=== PATIENT | male | born 1945 | race Caucasian/White ===

== ENCOUNTER 2019-02-25 07:10 | Day surgery (SDC) | payer MEDICARE, OTHER ==
[~2019-02-25] VITALS: Ht 185.4 cm; Wt 96.6 kg
[~2019-02-25 07:10] MED LIST: 24 HOUR ALLERG9.9 ML; EPIN0.3P; LOVASTATIN40 MG PO; NEOMYCIN-POLY-7.5 ML; TRAZODONE HCL50 MG PO
--- NOTE | 2019-02-25 09:41 | NUR ---
02/25/19 0941 Yanelis Grossman 0906 PT ARRIVED IN PACU SLEEPY WITH NO C/O'S. ABD SOFT AND PASSING FLATUS. 914 SITTING UP IN BED TALKING TO STAFF. 929 SITTING AT SIDE OF BED GETTING DRESSED WITH AT BEDSIDE. 937 DC INSTRUCTIONS GIVEN. ALL QUESTIONS ANSWERED. LEFT VIA W/C WITH VOLUNTEER.
--- NOTE | 2019-02-26 13:17 | OR ---
[facility] [address] [place], [place] [address] Signed DATE OF OPERATION: 02/25/2019 SURGEON: Ni Gandara MD PREOPERATIVE DIAGNOSIS: Family history of colon cancer (sister) and history of polyps. POSTOPERATIVE DIAGNOSIS: Polyps x2. PROCEDURE: Total colonoscopy to cecum with cold snare polypectomy x1 and hot snare polypectomy x1. ANESTHESIA: Intravenous sedation, fentanyl 150 mcg, and Versed 8 mg. 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 He is a patient of Dr. Black. He last underwent colonoscopy in 2012. He has family history of colon cancer in a sister as well as personal history of polyps. He is admitted at this time to undergo colonoscopy. He understands the risks of bleeding, infection, and perforation. FINDINGS: The prep was excellent. Complete colonoscopy was taken to the cecum without question. He had 2 small polyps, both less than a cm, but both such that snare polypectomy was appropriate. One was in the mid left colon at about 50 cm other than the sigmoid about 30 cm. Both were excised with snare polypectomy technique, one with cold technique, the other with hot snare technique. There were no other findings of concern. DESCRIPTION OF PROCEDURE: The patient was brought to the endoscopy suite and placed in lateral decubitus position, and given intravenous sedation to the point of slurred speech and nystagmus. Digital rectal examination was normal. Full cardiopulmonary monitoring was maintained. An Olympus video colonoscope was passed in the rectum and manipulated throughout the colon ultimately intubating the cecum itself. The ileocecal valve and appendiceal orifice were normal. The scope was withdrawn and examination showed no sign of abnormality until approximately 50 to 60 cm from the anal verge. This was small, but sessile and a cold snare polypectomy approach was used to excise it completely. The specimen was passed for Pathology. Scope was further withdrawn and the sigmoid at about 30 cm was Electronically Signed By: NI GANDARA MD 02/26/19 1317 PATIENT NAME: DENISE MEREDITH OPERATIVE REPORT DATE OF : 41 REPORT #: [id number] PHYSICIAN: NI GANDARA MD PCP: AJITH BLACK MD REPORT IS CONFIDENTIAL AND NOT TO BE RELEASED WITHOUT AUTHORIZATION [facility] [address] [place] [id number] Signed somewhat larger, but still less than a cm polyp. This was excised with hot snare polypectomy technique without problem. Further withdrawal showed no other abnormality including retroflexed view of the rectum. The scope was removed and the patient was taken to recovery room in good condition. CONCLUDING DIAGNOSIS: Polyps x2. PLAN: Recommend repeat colonoscopy in 3 years given family history and so forth. He will return to the ongoing care of Dr. Black otherwise. MD TEMO Junior/VENECIA /[id number] cc: Ajith Black MD Copies: AJITH BLACK MD ~ Electronically Signed By: NI GANDARA MD 02/26/19 1317 PATIENT NAME: DENISE MEREDITH OPERATIVE REPORT DATE OF : 41 REPORT #: [id number] PHYSICIAN: NI GANDARA MD PCP: AJITH BLACK MD REPORT IS CONFIDENTIAL AND NOT TO BE RELEASED WITHOUT AUTHORIZATION
--- NOTE | 2019-02-26 17:22 | PATH ---
[facility] [address] [place], [place] [address] Signed SPECIMEN(S): A COLON POLYP AT 50 CM SPECIMEN(S): B SIGMOID POLYP SPECIMEN SOURCE: A. COLON POLYP AT 50 CM B. SIGMOID POLYP CLINICAL HISTORY: Preop DX: Screening; family history colon CA; patient history of polyps. Postop DX: Polyps x 2 (1 with snare). MICROSCOPIC DESCRIPTION: Histologic sections of all submitted blocks are examined by light microscopy. These findings, together with the gross examination, support the pathologic diagnosis. FINAL PATHOLOGIC DIAGNOSIS: A. Colon, polyp at 50 cm, polypectomy: - Tubular adenoma. - Negative for high-grade dysplasia or malignancy. B. Colon, sigmoid, polyp, polypectomy: - Hyperplastic polyp. - Negative for dysplasia or malignancy. NAL: :cml:C2NR GROSS DESCRIPTION: Two specimens are received in two containers, labeled "WW." A. The specimen, labeled "WW, colon polyp at 50 cm," is received in formalin and consists of a single hewitt-brown polyp measuring 0.4 x 0.4 x 0.3 cm. Specimen is entirely submitted in cassette (A1). B. The specimen, labeled "WW, sigmoid polyp," is received in formalin and consists of a red-brown polyp measuring 0.5 x 0.4 x 0.4 cm. Specimen is bisected and entirely submitted in cassette (B1). AT (under the direct supervision of a pathologist) The Gross Description was prepared using a voice recognition system. The report was reviewed for accuracy; however, sound-alike word errors, addition and/or deletions may occur. If there is any question about this report, please contact Client Services. PERFORMING LABORATORY: The technical component was performed by [facility], [address] [place] [id number] ([employer] Deployment Lead: Radha Shepherd MD; CLIA# [id number]). PATIENT NAME: DENISE MEREDITH PATHOLOGY DATE OF : 41 REPORT #: [id number] PHYSICIAN: DANY PATHOLOGY PCP: AJITH BLACK MD REPORT IS CONFIDENTIAL AND NOT TO BE RELEASED WITHOUT AUTHORIZATION [facility] [address] [place], [place] [address] Signed Professional interpretation was performed by [facility], [address] [address] ([employer] Deployment Lead: Jaime Wood MD; CLIA# [id number]). Diagnostician: Bety Sloan MD Pathologist Electronically Signed 02/26/2019 Copies: ~ PATIENT NAME: DENISE MEREDITH PATHOLOGY DATE OF : 41 REPORT #: [id number] PHYSICIAN: DANY PATHOLOGY PCP: AJITH BLACK MD REPORT IS CONFIDENTIAL AND NOT TO BE RELEASED WITHOUT AUTHORIZATION
== END 2019-02-25 09:38 | disposition home or self-care (01) ==
LOC: OPS 07:10 → DS 07:10 → OPS 08:30 → DS 08:30 → OPS 09:38
PROVIDERS: Surgery
PROC: 0DBG8ZZ Excision of Left Large Intestine, Via Natural or Artificial Opening Endoscopic (ICD-10-PCS; 2019-02-25)
PROC: 0DBN8ZZ Excision of Sigmoid Colon, Via Natural or Artificial Opening Endoscopic (ICD-10-PCS; principal; 2019-02-25 08:30)
DX: Z12.11 Encounter for screening for malignant neoplasm of colon (principal); D12.4 Benign neoplasm of descending colon; K63.5 Polyp of colon; E78.5 Hyperlipidemia, unspecified; Z86.010 Personal history of colon polyps; Z80.0 Family history of malignant neoplasm of digestive organs; Z79.899 Other long term (current) drug therapy; Z98.890 Other specified postprocedural states; Z91.030 Bee allergy status; Z91.048 Other nonmedicinal substance allergy status; Z79.51 Long term (current) use of inhaled steroids
CPT/HCPCS: 99153; G0500; J2250; J3010; J7121

== ENCOUNTER 2020-06-15 02:00 | Emergency (ER) | payer MEDICARE, OTHER ==
[~2020-06-15] VITALS: Ht 185.4 cm; Wt 95.2 kg
[2020-06-15] MEDS ORDERED: ONDANSETRON ODT8 MG PO (05:12)
[2020-06-15] MEDS ORDERED: HYDROCODON-ACE1 EA10 PO (05:12)
== END 2020-06-15 05:35 | disposition home or self-care (01) ==
LOC: ED 02:00
DX: K85.90 Acute pancreatitis without necrosis or infection, unspecified (principal); Z91.030 Bee allergy status; Z79.899 Other long term (current) drug therapy
CPT/HCPCS: 74177; 76705; 80053; 80061; 81001; 83690; 85025; 96375; 99284-25; C9113; J1885; J7030; Q9967

== ENCOUNTER 2022-04-25 06:10 | Day surgery (SDC) | payer MEDICARE, OTHER ==
[~2022-04-25] VITALS: Ht 185.4 cm; Wt 95.0 kg
[~2022-04-25 06:10] MED LIST changes: +ADULT ASPIRIN R81 MG PO; +FLOMAX0.4 MG PO; +HYDROCODON-ACE1 EA10 PO; +OMEGA-31000 MG PO; +ONDANSETRON ODT8 MG PO
[2022-04-25] MEDS ORDERED: MULTI VITAMIN1 EACH PO (06:34)
[2022-04-25] MEDS ORDERED: VITAMIN D-40010 MCG PO (06:35)
[2022-04-25] MEDS ORDERED: VITAMIN C500 M1 PO ×2 (06:35)
[2022-04-25] MEDS ORDERED: ZINC30 MG PO (06:36)
--- NOTE | 2022-04-25 08:29 | NUR ---
04/25/22 0829 Yanelis Grossman 0815 PT ARRIVED IN PACU SLEEPY WITH NO C/O'S. ABD SOFT AND PASSING FLATUS. 0825 SITTING UP IN BED SIPPING ON WATER. NO C/O'S. 0829 DR AT BEDSIDE.
--- NOTE | 2022-04-26 15:14 | PATH ---
[facility] [address] [place], [place] [address] Signed SPECIMEN(S): A CECUM POLYP SPECIMEN(S): B HEPATIC FLEXURE POLYP SPECIMEN(S): C TRANSVERSE COLON POLYP SPECIMEN(S): D SPLENIC FLEXURE POLYP SPECIMEN SOURCE: A. CECUM POLYP B. HEPATIC FLEXURE POLYP C. TRANSVERSE COLON POLYP D. SPLENIC FLEXURE POLYP CLINICAL HISTORY: Colonoscopy with possible biopsy. Pre: 2020 tubular adenoma hyperplastic polyps. Post: Polyps and internal hemorrhoid. FINAL PATHOLOGIC DIAGNOSIS: A. Cecum polyp: - Tubular adenoma (one fragment). B. Hepatic flexure polyp: - Tubular adenoma (two fragments). C. Transverse colon polyp: - Polypoid fragments of colonic mucosa with slight adenomatous change. - Negative for pathologic inflammation. D. Splenic flexure polyp: - Tubular adenoma (one fragment). JVR:[facility]:C2NR MICROSCOPIC EXAMINATION: Histologic sections of all submitted blocks are examined by light microscopy. These findings, together with the gross examination, support the pathologic diagnosis. GROSS DESCRIPTION: A. The specimen, labeled and designated "Mayi, cecum polyp," is received in formalin and consists of two hewitt soft tissue fragments, ranging from 0.3-0.5 cm. Entirely submitted in (A1). B. The specimen, labeled and designated "Mayi, hepatic flexure polyp," is received in formalin and consists of two hewitt soft tissue fragments, ranging from 0.2-0.3 cm. Entirely submitted in (B1). C. The specimen, labeled and designated "Mayi, transverse colon polyp," is received in formalin and consists of one hewitt soft tissue fragment, 0.2 cm. PATIENT NAME: DENISE MEREDITH PATHOLOGY DATE OF : 41 REPORT #: [id number] PHYSICIAN: DANY VILLAGRAN PCP: AJITH BLACK MD REPORT IS CONFIDENTIAL AND NOT TO BE RELEASED WITHOUT AUTHORIZATION [facility] [address] [place], [place] [address] Signed Entirely submitted in (C1). D. The specimen, labeled and designated "Mayi, splenic flexure polyp," is received in formalin and consists of one hewitt soft tissue fragment, 0.3 cm. Entirely submitted in (D1). VB (under the direct supervision of a pathologist) The Gross Description was prepared using a voice recognition system. The report was reviewed for accuracy; however, sound-alike word errors, addition and/or deletions may occur. If there is any question about this report, please contact Client Services. PERFORMING LABORATORY: The technical component was performed by [facility], [address] [place] [id number] (CLIA# [id number]). Professional interpretation was performed by [facility] [place], [address] [place] [id number] (CLIA#: [id number]). Diagnostician: Eric Kimball MD Pathologist Electronically Signed 04/26/2022 Copies: ~ PATIENT NAME: DENISE MEREDITH PATHOLOGY DATE OF : 41 REPORT #: [id number] PHYSICIAN: DANY VILLAGRAN PCP: AJITH BLACK MD REPORT IS CONFIDENTIAL AND NOT TO BE RELEASED WITHOUT AUTHORIZATION
--- NOTE | 2022-04-27 10:37 | OR ---
[facility] [address] [place], [place] [address] Signed DATE OF OPERATION: 04/25/2022 SURGEON: Ni Gandara MD PREOPERATIVE DIAGNOSIS: History of polyps. POSTOPERATIVE DIAGNOSIS: Polyps x4 and internal hemorrhoids. PROCEDURE: Total colonoscopy to cecum with cold snare polypectomy x2, cold morcellation polypectomy x2. ANESTHESIA: Intravenous sedation, fentanyl 150 mcg, Versed 6 mg. INDICATION: This 76-year-old white man is a patient of Dr. Black and well known to me from the past. He has a history of colonic polyps. He is asymptomatic currently and is admitted to undergo screening colonoscopy. He understands the risk of bleeding, infection, and perforation. FINDINGS: The prep was excellent. Complete colonoscopy was undertaken to the cecum. There were four polyps in total, one in the cecum, another in the hepatic flexure, another in the transverse and another in the left colon at the splenic flexure. All were excised. DESCRIPTION OF PROCEDURE: The patient was brought to the endoscopy suite and placed in the lateral decubitus position, given intravenous sedation to the point of slurred speech and nystagmus. Digital rectal examination was normal. An Olympus video colonoscope was passed in the rectum and manipulated throughout the colon ultimately intubating the cecum. A small sessile polyp at the cecum was noted, this was excised with cold snare polypectomy technique and extracted and passed for pathology. Further withdrawal of the scope showed a smaller polyp at the hepatic flexure, this was excised with cold morcellation technique. Further withdrawal showed another polyp in the mid transverse colon, which was excised with cold morcellation technique and another one at the splenic flexure excised with cold snare technique. Electronically Signed By: NI GANDARA MD 04/27/22 [facility] PATIENT NAME: DENISE MEREDITH OPERATIVE REPORT DATE OF : 41 REPORT #: [id number] PHYSICIAN: NI GANDARA MD PCP: AJITH BLACK MD REPORT IS CONFIDENTIAL AND NOT TO BE RELEASED WITHOUT AUTHORIZATION [facility] [address] [place] [address] Signed Further withdrawal of the scope showed no other abnormality other than internal hemorrhoids. The scope was removed and the patient was taken to the recovery room in good condition. CONCLUDING DIAGNOSIS: Polyps x4. PLAN: Recommend repeat colonoscopy in three years, sooner if clinically indicated. He will return to the ongoing care of Dr. Black. MD TEMO Junior/HERBL /[id number] cc: Ajith Black MD Copies: AJITH BLACK MD ~ Electronically Signed By: NI GANDARA MD 04/27/22 1037 PATIENT NAME: DENISE MEREDITH OPERATIVE REPORT DATE OF : 41 REPORT #: [id number] PHYSICIAN: NI GANDARA MD PCP: AJITH BLACK MD REPORT IS CONFIDENTIAL AND NOT TO BE RELEASED WITHOUT AUTHORIZATION
== END 2022-04-25 08:45 | disposition home or self-care (01) ==
LOC: DS 06:10
PROVIDERS: ATTEND Surgery
PROC: 0DBL8ZX Excision of Transverse Colon, Via Natural or Artificial Opening Endoscopic, Diagnostic (ICD-10-PCS; 2022-04-25)
PROC: 0DBH8ZX Excision of Cecum, Via Natural or Artificial Opening Endoscopic, Diagnostic (ICD-10-PCS; principal; 2022-04-25 07:30)
DX: Z12.11 Encounter for screening for malignant neoplasm of colon (principal); D12.0 Benign neoplasm of cecum; D12.3 Benign neoplasm of transverse colon; K64.8 Other hemorrhoids; E78.5 Hyperlipidemia, unspecified; Z80.9 Family history of malignant neoplasm, unspecified
CPT/HCPCS: 99153; G0500; J2250; J3010; J7121